=== PATIENT | female | born 1985 | race Caucasian/White ===

== ENCOUNTER 2016-10-19 06:45 | Day surgery (SDC) | payer MEDICAID ==
[~2016-10-19 06:45] MED LIST: ACETAMINOPHEN 1,000 MG/100 ML BTL IV ONE
--- NOTE | 2016-10-19 11:30 | Operative Note ---
DATE OF SURGERY: 10/19/2016 Surgeon: Haja Alfred DO Referring physician: Leigh Ann Thayer MD PREOPERATIVE DIAGNOSIS: Carpal tunnel syndrome of the right wrist. POSTOPERATIVE DIAGNOSIS: Carpal tunnel syndrome of the right wrist. OPERATION: Decompression right median nerve of the wrist using 3.5 loupe magnification. Anesthesia: General. PROCEDURE: This 31-year-old female was taken to the operating room and placed in the supine position on the operating room table. A general anesthetic was administered and the right upper extremity was elevated. It was prepped with Hibiclens and draped in the usual sterile fashion, exsanguinated and the tourniquet inflated to 250 mmHg. A palmar incision was utilized following the hypothenar crease from the level of the base of the web space of the thumb to the flexor crease of the wrist. Dissection was carried down through the skin and subcutaneous tissue. The palmar fascia was then divided in line with the skin incision. The flexor retinaculum was identified, punctured, split to its proximal margin, and then with the contents of the carpal tunnel under direct vision, the transverse carpal ligament was transected along its ulnar border and the radial flap was raised to expose the entire median nerve under the transverse carpal ligament. The nerve itself appeared to be significantly hyperemic with a mild hourglass deformity. The recurrent motor branch of the median nerve was identified and found to be normal. The wound was then copiously irrigated with lactated Ringer's solution, the tourniquet was released. Hemostasis obtained with the electrocautery and the wound closed with interrupted 6-0 nylon suture. Sterile dressings were applied with a plaster splint immobilization with the wrist in slight dorsiflexion and the thumb in an adducted position. The patient was then taken to the recovery room in satisfactory condition. [facility]
[2016-10-19] MEDS ORDERED: ONDANSETRON HCL IV 4 MG/2 ML VIAL IVP ONE (14:37)
[2016-10-19] MEDS ORDERED: PROMETHAZINE HCL 25 MG/ML VIAL IVP ONE (14:37)
[2016-10-19] MEDS ORDERED: SEVOFLURANE 250 ML INH ONE (14:44)
[2016-10-19] MEDS ORDERED: HYDROMORPHONE HCL 2 MG/ML VIAL IV ONE (14:44)
[2016-10-19] MEDS ORDERED: PROPOFOL 10 MG/ML VIAL IV ONE (14:44)
[2016-10-19] MEDS ORDERED: KETOROLAC 30 MG/ML VIAL IVP ONE (14:44)
[2016-10-19] MEDS ORDERED: LIDOCAINE 2% MDV (20MG/ML) 20ML VIAL IV ONE (14:44)
== END 2016-10-19 09:45 | disposition home or self-care (01) ==
LOC: SUR 06:45
PROVIDERS: ATTEND Orthopaedic Surgery
DX: G56.01 Carpal tunnel syndrome, right upper limb (principal)
CPT/HCPCS: 81025; 64721; 01810; J1885; J2405; J1170; J2550